=== PATIENT | female | born 1980 | race Caucasian/White ===

== ENCOUNTER 2023-09-14 12:19 | Inpatient (IN) | payer BC, SELFPAY ==
[~2023-09-14] VITALS: Ht 162.6 cm; Wt 84.7 kg
[2023-09-14 15:54] VITALS: BP 159/104; TEMP 97.9; O2SAT 97
[2023-09-14] MEDS ORDERED: ONDANSETRON 4MG 2ML VIAL IV PRN ×2 (16:45→18:15)
[2023-09-14] MEDS ORDERED: KETOROLAC 30 MG/ML 1ML VIAL IV PRN (16:45)
[2023-09-14] MEDS: ZOSYN 3.375GM VIAL As Ordered ONE (17:28)
[2023-09-14] MEDS: PIPERACILLIN/TAZOBACTAM SOD 3.375 GM in D5W MINI-BAG PLUS 50 ML IV SCH (17:28)
[2023-09-14] MEDS ORDERED: ROCURONIUM BROMIDE 50MG/5ML VIAL As Ordered ONE (18:03)
[2023-09-14] MEDS ORDERED: fentaNYL 250 MCG/5 ML INJECTION As Ordered ONE (18:03)
[2023-09-14] MEDS ORDERED: propofoL 200 MG/20 ML VIAL As Ordered ONE (18:03)
[2023-09-14] MEDS ORDERED: dexmedeTOMIDine (4MCG/ML)200MCG/50ML BTL (PRECEDEX) As Ordered ONE (18:03)
[2023-09-14] MEDS ORDERED: SUGAMMADEX SODIUM 500 MG/5 ML VIAL (BRIDION) As Ordered ONE (18:03)
[2023-09-14] MEDS ORDERED: ACETAMINOPHEN 1000MG 100ML IV BAG As Ordered ONE (18:03)
[2023-09-14] MEDS ORDERED: ONDANSETRON 4MG 2ML VIAL As Ordered ONE (18:03)
[2023-09-14] MEDS ORDERED: MIDAZOLAM INJ 2MG/2ML VIAL As Ordered ONE (18:03)
[2023-09-14] MEDS ORDERED: LIDOCAINE 2% 100MG/5ML SDV (FOR ANES.) As Ordered ONE (18:03)
[2023-09-14] MEDS ORDERED: oxyCODONE 5MG TAB PO PRN (18:15)
[2023-09-14] MEDS: LR 1,000 ML IV SCH ×2 (18:15→19:40)
[2023-09-14] MEDS ORDERED: HYDROMORPHONE HCL 0.5 MG/ 0.5 ML SYRINGE IV PRN (18:15)
[2023-09-14] MEDS ORDERED: fentaNYL 100 MCG/2 ML INJECTION IV PRN (18:15)
[2023-09-14 19:33] VITALS: BP 118/75; TEMP 97.9; O2SAT 97
[2023-09-14 20:05] VITALS: BP 117/75; TEMP 97.7; O2SAT 96
[2023-09-14 20:39] VITALS: BP 117/75; TEMP 97.9; O2SAT 96
[2023-09-14] MEDS: ACETAMINOPHEN TAB 650MG DOSE (2X325MG) PO PRN (20:39)
[2023-09-14 21:02] LABS: HEMATOCRIT 37.2 % (36.0-47.0); HEMOGLOBIN 12.4 g/dl (12.0-15.5); MEAN CORPUSCULAR HEMOGLOBIN 28.1 pg (27.0-33.0); MEAN CORPUSCULAR HGB CONC 33.3 g/dl (32.0-36.5); MEAN CORPUSCULAR VOLUME 84.4 fl (80.0-96.0); PLATELET COUNT, AUTOMATED 184 10^3/uL (150-450); RED BLOOD COUNT 4.41 10^6/uL (4.00-5.40); WHITE BLOOD COUNT 10.8 10^3/uL (4.0-10.0)
[2023-09-14 21:20] LABS: INR 1.13; PARTIAL THROMBOPLASTIN TIME 29.1 SECONDS (24.8-34.2); PROTHROMBIN TIME 14.2 SECONDS (12.5-14.5)
[2023-09-14 21:34] LABS: ALBUMIN 3.4 G/DL (3.2-5.2); ALKALINE PHOSPHATASE 65 U/L (46-116); ALT/SGPT 12 U/L (7.0-40); AST/SGOT < 8 U/L (<34); BILIRUBIN,TOTAL 1.1 MG/DL (0.3-1.2); BLOOD UREA NITROGEN 13 MG/DL (9-23); CALCIUM LEVEL 8.4 MG/DL (8.5-10.1); CARBON DIOXIDE LEVEL 24 MMOL/L (20-31); CHLORIDE LEVEL 109 MMOL/L (98-107); CREATININE FOR GFR 0.64 MG/DL (0.55-1.30); GLOMERULAR FILTRATION RATE > 60.0 (>58); GLUCOSE, FASTING 173 MG/DL (60-100); POTASSIUM SERUM 3.9 MMOL/L (3.5-5.1); SODIUM LEVEL 138 MMOL/L (136-145); TOTAL PROTEIN 5.8 G/DL (5.7-8.2)
[2023-09-14 21:36] VITALS: BP 114/67; TEMP 97.9; O2SAT 96
[2023-09-14 22:38] VITALS: BP 114/67; TEMP 97.5; O2SAT 95
[2023-09-15 00:05] VITALS: BP 116/86; TEMP 97.3; O2SAT 96
[2023-09-15] MEDS: KETOROLAC 30 MG/ML 1ML VIAL IV PRN (00:09)
[2023-09-15 04:13] VITALS: BP 113/62; TEMP 97.9; O2SAT 95
[2023-09-15] MEDS ORDERED: ERGO500029 PO (07:53)
[2023-09-15] MEDS ORDERED: HOME MED LIST COMPLETE! XX SCH (07:55)
[2023-09-15 08:00] VITALS: BP 118/65; TEMP 98.1; O2SAT 97
[2023-09-15] MEDS ORDERED: ONDA-282 PO (10:21)
[2023-09-15] MEDS ORDERED: ACET-683 PO (10:21)
[2023-09-15] MEDS ORDERED: IBUP-1114 PO (10:21)
[2023-09-15 12:00] VITALS: BP 117/70; TEMP 97.9; O2SAT 98
== END 2023-09-15 13:21 | disposition home or self-care (01) | DRG 225 ==
LOC: EDSEX → M MSPAV 15:53
PROVIDERS: ADMIT Internal Medicine; ATTEND Student in an Organized Health Care Education/Training Program
PROC: 8E0W4CZ Robotic Assisted Procedure of Trunk Region, Percutaneous Endoscopic Approach (ICD-10-PCS; 2023-09-14)
PROC: 0DTJ4ZZ Resection of Appendix, Percutaneous Endoscopic Approach (ICD-10-PCS; principal; 2023-09-14 17:00)
DX: K35.80 Unspecified acute appendicitis (principal); E55.9 Vitamin D deficiency, unspecified; Z79.899 Other long term (current) drug therapy; Z88.2 Allergy status to sulfonamides

== ENCOUNTER 2024-03-15 08:46 | Day surgery (SDC) | payer BC ==
[~2024-03-15] VITALS: Ht 162.6 cm; Wt 84.1 kg
[~2024-03-15 08:46] MED LIST: ACET-683 PO; AZIT-12 PO; BENZ200C70 PO; ERGO500029 PO; IBUP-1114 PO; LIDOCAINE 2% 100MG/5ML SDV (FOR ANES.) As Ordered ONE; ONDA-282 PO; propofoL 200 MG/20 ML VIAL As Ordered ONE
[2024-03-15 10:35] VITALS: TEMP 97.6
[2024-03-15 10:50] VITALS: BP 164/92; O2SAT 98
== END 2024-03-15 10:54 | disposition home or self-care (01) ==
LOC: M OPP 08:46
PROVIDERS: ATTEND Surgery
DX: Z12.11 Encounter for screening for malignant neoplasm of colon (principal); K62.1 Rectal polyp; K63.5 Polyp of colon; Z88.2 Allergy status to sulfonamides; Z79.2 Long term (current) use of antibiotics; Z79.899 Other long term (current) drug therapy; R56.9 Unspecified convulsions